=== PATIENT | female | born 1970 | race Caucasian/White ===

== ENCOUNTER 2017-05-12 17:55 | Emergency (ER) | payer BC ==
[~2017-05-12] VITALS: Ht 170.2 cm; Wt 100.7 kg
[2017-05-12 18:25] VITALS: TEMP 36.7; Ht 170.2 cm; Wt 100.7 kg
[2017-05-12] MEDS ORDERED: KETOROLAC TROMETHAMINE 30 MG/ML VIAL IV STA (19:22)
[2017-05-12 19:55] LABS: BASO % 0.3 %; BASO ABS # 0.02 K/uL (0-0.2); EOS % 2.5 %; EOS ABS # 0.19 K/uL (0-0.5); HEMATOCRIT 41.4 % (37-47); HEMOGLOBIN 13.7 g/dL (12.0-16.0); IG# 0.01 K/uL (0.00-0.02); LYMPH % 27.4 %; LYMPH ABS # 2.11 K/uL (1.2-3.4); MEAN CELL VOLUME 86.1 fL (80-100); MEAN CORPUSCULAR HEMOGLOBIN 28.5 pg (25-34); MEAN CORPUSCULAR HGB CONC 33.1 g/dl (32-36); MEAN PLATELET VOLUME 9.9 fL (7.4-10.4); MONO % 10.5 %; MONO ABS # 0.81 K/uL (0.11-0.59); NEUT % 59.2 %; NEUT ABS # 4.56 K/uL (1.4-6.5); PLATELET COUNT 216 K/uL (130-400); RED CELL DISTRIBUTION WIDTH CV 13.3 % (11.5-14.5); RED CELL DISTRIBUTION WIDTH SD 42.2 fL (36.4-46.3)
--- NOTE | 2017-05-12 20:09 | EMERGENCY ROOM VISIT NOTE ---
History First contact with patient: 19:05 Chief Complaint: FOOT PAIN Stated Complaint: FOOT PAIN History of Present Illness The patient is a 46 year old female who presents to the Emergency Room with complaints of left foot pain Pain started 3 days ago She noticed a small dark spot around that time. Denies trauma or injury. Notes the pain on the medial aspect near the 1st MTP. No difficulty moving first MTP. Reports a dull/throbbing discomfort 2/10 at rest and 6/10 with walking. No sensory changes distally. She denies fevers, chills or sweats. She is eating and drinking well. She continues to weight bear albeit with discomfort. She denies any calf pain or calf tenderness. Review of Systems A 10 point review of systems was negative unless stated above. Past Medical/Surgical History Type 2 Diabetes Mellitus Social History Smoking Status: Never Smoker Smokeless Tobacco Use: No Alcohol Use: none Drug Use: none Marital Status: Housing Status: lives with family Occupation Status: employed Allergies NKA Physical Exam Vital Signs Date Time Temp Pulse Resp B/P (MAP) Pulse Ox O2 Delivery O2 Flow Rate FiO2 05/12/17 18:25 36.7 104 18 136/89 94 Room Air Pain Rating (0-10): 6 Physical Exam Constitutional: Vital signs as above were reviewed. Eyes: Pupils equal, round, and reactive to light. Extraocular muscles are intact. No proptosis. No photophobia. ENT: Mucous membranes are moist. Oropharynx is clear. No sinus tenderness. TMs are clear bilaterally. Cardiovascular: Heart with a regular rate and rhythm. Pulses are palpable and symmetric in all 4 extremities. No pedal edema appreciated. Respiratory: Lungs clear to auscultation bilaterally. No wheezes, rales, or rhonchi appreciated. No accessory muscle use. No retractions. No increased work of breathing. GI: Abdomen soft, nontender, nondistended. Normal active bowel sounds. No abdominal hernias appreciated. No rebound. No guarding. : No CVA tenderness appreciated. Musculoskeletal: No midline cervical or vertebral tenderness. No gross deformities. No bony tenderness. No calf swelling or tenderness. Left: foot mild redness on medial aspect of 1st MTP; mild warmth; mild swelling; no pain with joint movement; 2 small dark purple superficial spots in affected area; no purulence, no bleeding No calf pain or tenderness Distal sensation and pulses intact in the left foot. Integumentary: Warm, dry, no rashes appreciated. Neurological: Patient awake, alert, and oriented x 3. Lymph: No cervical lymphadenopathy appreciated. Medical Decision & Procedures ER Provider Diagnostic Interpretation: [~ rep ct add3]] LEFT FOOT 3 VIEWS HISTORY: LEFT FOOT PAIN AND SWELLING, PAIN WEIGHT BEARING COMPARISON: None. FINDINGS: There is no fracture or dislocation. Soft tissues are unremarkable. No radiopaque foreign bodies. Mild osteoarthritis at the first MTP joint. The Lisfranc joint is intact. Plantar and posterior calcaneal spurs. IMPRESSION: No fractures. Electronically signed by: Alfred Rangel M.D. 05/12/2017 8:28 PM Dictated Date/Time: 05/12/2017 8:26 PM The status of this report is Signed. Draft = Not yet reviewed or approved by Radiologist. Signed = Reviewed and approved by Radiologist. Laboratory Results 05/12/17 19:30 Red Blood Count 4.81, Mean Corpuscular Volume 86.1, Mean Corpuscular Hemoglobin 28.5, Mean Corpuscular Hemoglobin Concent 33.1, Mean Platelet Volume 9.9, Neutrophils (%) (Auto) 59.2, Lymphocytes (%) (Auto) 27.4, Monocytes (%) (Auto) 10.5, Eosinophils (%) (Auto) 2.5, Basophils (%) (Auto) 0.3, Neutrophils # (Auto ) 4.56, Lymphocytes # (Auto) 2.11, Monocytes # (Auto) 0.81, Eosinophils # (Auto ) 0.19, Basophils # (Auto) 0.02 05/12/17 19:30 Test 05/12/17 19:30 White Blood Count 7.70 K/uL (4.8-10.8) Red Blood Count 4.81 M/uL (4.2-5.4) Hemoglobin 13.7 g/dL (12.0-16.0) Hematocrit 41.4 % (37-47) Mean Corpuscular Volume 86.1 fL (80-100) Mean Corpuscular Hemoglobin 28.5 pg (25-34) Mean Corpuscular Hemoglobin Concent 33.1 g/dl (32-36) Platelet Count 216 K/uL (130-400) Mean Platelet Volume 9.9 fL (7.4-10.4) Neutrophils (%) (Auto) 59.2 % Lymphocytes (%) (Auto) 27.4 % Monocytes (%) (Auto) 10.5 % Eosinophils (%) (Auto) 2.5 % Basophils (%) (Auto) 0.3 % Neutrophils # (Auto) 4.56 K/uL (1.4-6.5) Lymphocytes # (Auto) 2.11 K/uL (1.2-3.4) Monocytes # (Auto) 0.81 K/uL (0.11-0.59) Eosinophils # (Auto) 0.19 K/uL (0-0.5) Basophils # (Auto) 0.02 K/uL (0-0.2) RDW Standard Deviation 42.2 fL (36.4-46.3) RDW Coefficient of Variation 13.3 % (11.5-14.5) Immature Granulocyte % (Auto) 0.1 % Immature Granulocyte # (Auto) 0.01 K/uL (0.00-0.02) Anion Gap 4.0 mmol/L (3-11) Est Creatinine Clear Calc Drug Dose 97.5 ml/min Estimated GFR () 91.9 Estimated GFR (Non- 79.3 BUN/Creatinine Ratio 14.9 (10-20) Calcium Level 8.7 mg/dl (8.5-10.1) Medications Administered Medications (Trade) Dose Ordered Sig/Juni Route Start Time Stop Time Status Last Admin Dose Admin Ketorolac Tromethamine (Toradol Inj) 30 mg NOW STAT IV 05/12/17 19:22 05/12/17 19:25 DC 05/12/17 19:40 30 MG ED Course 19:10 - Patient seen and assessed 19:25 - Discussed case with Dr. Palomino who will evaluate the patient separately Studies ordered: CBC, BMP, X-ray left foot. 30 mg IV Toradol 20:00 - Labs reviewed: all normal X-ray reviewed: no acute fracture or bony injury Medical Decision 46 year old female with left foot pain. Differential includes: cellulitis, gout, pseudogout, acute fracture, intra- articular injury, hemarthrosis, septic joint. X-ray was negative and did not suggest articular involvement. Superficially, she had mild warmth. Labs are all normal with no clinical or biochemical evidence of systemic infection. At this point we would recommend trial of antibiotic. She has known follow-up with her PCP in 1 week at which time her foot can be re-assessed. The patient was agreeable to this plan. We will recommend additional conservative treatment measures including ice, elevation and Tylenol/Motrin for pain. Head Trauma GCS Score: 15 Medication Reconcilliation Current Medication List: was personally reviewed by me Blood Pressure Screening Patient's blood pressure: Normal blood pressure Impression Primary Impression: Cellulitis of foot Ruled Out: Foot fracture, left Departure Information Dispostion Home / Self-Care Condition GOOD Prescriptions Cephalexin Monohydrate (KEFLEX) 500 Mg Cap 500 MG PO TID for 7 Days, #21 CAP Prov: Jovany Alvarez MD 05/12/17 Referrals Jennifer Barros M.D. (PCP) Patient Instructions My [facility] Additional Instructions You have an infection in the left foot. Your labs are all normal fortunately. Your X-ray of the foot was normal. You will be prescribed an antibiotic to be taken for the next 7 days. If you have pain or discomfort, please take [id number] Tylenol or Motrin. In addition, you can try warm compresses or ice for further relief. To reduce swelling you can raise the leg at nighttime. Your primary care provider should see you within 1 week to re-evaluate your left foot. If your symptoms fail to improve, acutely worsen, please seek medical attention immediately by either calling your primary care provider or going to your nearest emergency department. Otherwise, please see your primary care provider within 1 week to ensure that your symptoms continue to improve. It was a pleasure to be involved in your care and we wish you all the best.
[2017-05-12 20:12] LABS: CALCIUM 8.7 mg/dl (8.5-10.1); CREATININE 0.87 mg/dl (0.60-1.20); POTASSIUM 3.9 mmol/L (3.5-5.1)
--- NOTE | 2017-05-12 20:29 | DIAGNOSTIC IMAGING REPORT ---
LEFT FOOT 3 VIEWS HISTORY: LEFT FOOT PAIN AND SWELLING, PAIN WEIGHT BEARING COMPARISON: None. FINDINGS: There is no fracture or dislocation. Soft tissues are unremarkable. No radiopaque foreign bodies. Mild osteoarthritis at the first MTP joint. The Lisfranc joint is intact. Plantar and posterior calcaneal spurs. IMPRESSION: No fractures. Electronically signed by: Alfred Rangel M.D. 05/12/2017 8:28 PM Dictated Date/Time: 05/12/2017 8:26 PM
[2017-05-12] MEDS ORDERED: CEPH500C2 PO (20:39)
[2017-05-12 20:52] VITALS: BP 158/89; PULSE 61; O2SAT 94
--- NOTE | 2017-05-13 03:44 | EMERGENCY ROOM VISIT NOTE ---
ED Visit Note First contact with patient: 19:05 HPI: 46F with pmhx of DM here with left foot redness swelling. PE: AFVSS, NAD NC/AT RRR, no murmurs CTAB Abd soft NT/ND Ext: left foot with mild erythema/warm along medial instep. PMS intact Neuro: grossly intact Plan: Exam c/w cellulitis. Labs unremarkable. Xray negative for fx or osseous involvement. Plan for Keflex and pcp f/u. I reviewed the patient's past medical history, medications, and visit nursing notes. I discussed the case with the resident physician, examined the patient, and agree with the findings and plan as documented in the residents note unless otherwise clarified here by me.
== END 2017-05-12 20:53 | disposition home or self-care (01) ==
LOC: C.EDB 17:56 → C.EDC 20:53
DX: L03.116 Cellulitis of left lower limb (principal); E11.9 Type 2 diabetes mellitus without complications